=== PATIENT | female | born 1995 ===

== ENCOUNTER 2025-07-24 13:15 | Inpatient (IN) | payer OTHER ==
[~2025-07-24] VITALS: Ht 152.4 cm; Wt 65.3 kg
[2025-07-29 19:59] VITALS: BP 117/66
[2025-07-29] MEDS ORDERED: MORPHINE SULFATE 4 MG/ML VIAL IV PRN (20:30)
[2025-07-29] MEDS ORDERED: RINGERS SOLUTION,LACTATED 1,000 ML IV SCH (20:30)
[2025-07-29] MEDS ORDERED: PRENATAL TABLE1 EAC1 PO (20:49)
[2025-07-29] MEDS ORDERED: PEPCID20 MG PO (20:50)
[2025-07-29 21:00] LABS: BASO % 0.3 % (0.1-1.2); EOS # 0.03 (0.04-0.54); EOS % 0.3 % (0.7-7.0); LYMPH # 1.38 (1.18-3.74); LYMPH % 13.9 % (19.3-53.1); MEAN PLATELET VOLUME 10.70 fl (9.4-12.4); MONO # 0.65 (0.24-0.82); MONO % 6.6 % (4.7-12.5); NEUT # 7.73 (1.56-6.13); NEUT % 78.1 % (34.0-71.1); RED CELL DISTRIBUTION WIDTH 13.6 % (11.6-14.4)
[2025-07-29 21:15] LABS: INR < 0.93
[2025-07-29 21:19] LABS: ALT/SGPT 22.0 U/L (12-78); AST/SGOT 26.0 U/L (15-37); BILIRUBIN TOTAL 0.3 mg/dL (0.3-1.2); BUN CREA RATIO 26.0 (7.0-25.0); CREATININE SERUM 0.7 mg/dL (0.55-1.02); GFR 97.6; GLOBULINA 3.9 G/DL (2.4-3.5); GLUCOSE FASTING 90.0 mg/dL (65-100); OSMOLALITY SERUM 275.0 MOSM/KG (275-295)
[2025-07-29] MEDS ORDERED: ERYTHROMYCIN BASE OPHT 1GM EACH TUBE OP ONE (21:52)
[2025-07-29] MEDS ORDERED: LIDOCAINE HCL 1% 10ML VIAL ONE (21:53)
[2025-07-29] MEDS ORDERED: CHLORHEXIDINE GLUCONATE 120 ML BOTTLE TOP ONE (21:53)
[2025-07-29] MEDS ORDERED: OXYTOCIN 20 UNITS/1000ML RL PIGGYBAG IV ONE (21:53)
[2025-07-29 23:10] VITALS: BP 129/85
[2025-07-30] VITALS (7 sets, daily range): BP systolic 94–122; BP diastolic 50–77
[2025-07-30] MEDS ORDERED: BENZOCAINE/MENTHOL 90 ML BOTTLE TOP SCH (00:22)
[2025-07-30] MEDS ORDERED: CHLORHEXIDINE GLUCONATE 120 ML BOTTLE TP SCH (00:30)
[2025-07-30] MEDS ORDERED: OXYTOCIN 1,000 ML IV SCH (00:30)
[2025-07-31 00:05] VITALS: BP 115/72
[2025-07-31 07:07] LABS: BASO % 0.5 % (0.1-1.2); EOS # 0.05 (0.04-0.54); EOS % 0.6 % (0.7-7.0); LYMPH # 2.15 (1.18-3.74); LYMPH % 24.5 % (19.3-53.1); MEAN PLATELET VOLUME 10.60 fl (9.4-12.4); MONO # 0.58 (0.24-0.82); MONO % 6.6 % (4.7-12.5); NEUT # 5.91 (1.56-6.13); NEUT % 67.1 % (34.0-71.1); RED CELL DISTRIBUTION WIDTH 13.8 % (11.6-14.4)
[2025-07-31 07:27] VITALS: BP 94/65
[2025-07-31 21:56] VITALS: BP 107/67
[2025-08-01 01:19] VITALS: BP 105/71
[2025-08-01 08:00] VITALS: BP 106/70
== END 2025-08-01 11:40 | disposition home or self-care (01) | DRG 807 ==
LOC: OB/GYN 07-29 20:14 → LDR 07-29 20:14 → OB/GYN 07-30 00:34
PROVIDERS: Obstetrics & Gynecology; ADMIT Obstetrics & Gynecology Maternal & Fetal Medicine; ATTEND Obstetrics & Gynecology Maternal & Fetal Medicine
PROC: 4A1HXCZ Monitoring of Products of Conception, Cardiac Rate, External Approach (ICD-10-PCS; 2025-07-29)
PROC: 10E0XZZ Delivery of Products of Conception, External Approach (ICD-10-PCS; principal; 2025-07-30)
PROC: 0KQM0ZZ Repair Perineum Muscle, Open Approach (ICD-10-PCS; 2025-07-30)
DX: O70.1 Second degree perineal laceration during delivery (principal); Z37.0 Single live birth; Z3A.39 39 weeks gestation of pregnancy

== ENCOUNTER 2025-07-26 10:09 | Outpatient (CLI) | payer OTHER | END 2025-07-26 11:50 | disposition home or self-care (01) | LOC: NST 10:09 | PROVIDERS: ATTEND Obstetrics & Gynecology Gynecology | DX: Z34.83 Encounter for supervision of other normal pregnancy, third trimester (principal) ==